=== PATIENT | male | born 1965 | race Caucasian/White ===

== ENCOUNTER 2020-05-14 19:55 | Emergency (ER) | payer BC ==
[2020-05-14] MEDS ORDERED: Bacitracin Oint 1 GM U/D Packet TOP ONE (20:20)
--- NOTE | 2020-05-14 20:55 | EDM.PDOC ---
ED HPI GENERAL MEDICAL PROBLEM - General Chief Complaint: Laceration Stated Complaint: CUT RIGHT HAND Time Seen by Provider: 05/14/20 20:25 Source of Information: Reports: Patient, Family History Limitations: Reports: Intoxication - History of Present Illness INITIAL COMMENTS - FREE TEXT/NARRATIVE: 55-year-old very intoxicated gentleman fell and cut his right hand on the ground . No other injury. It is a very dirty wound with particles of dirt embedded into the wound. Onset: Sudden Duration: Hour(s): (Within the last hour) Location: Reports: Upper Extremity, Right Associated Symptoms: Reports: No Other Symptoms - Related Data Allergies Allergy/AdvReac Type Severity Reaction Status Date / Time Penicillins Allergy Seizure Verified 05/14/20 20:19 Home Meds: Home Meds . [Unable to Verify Home Med List] 05/14/20 [History] Past Medical History - Past Surgical History HEENT Surgical History: Reports: Tonsillectomy Musculoskeletal Surgical History: Reports: Knee Replacement, Shoulder Replacement Social & Family History - Family History Family Medical History: Noncontributory - Tobacco Use Smoking Status *Q: Light Tobacco Smoker Years of Tobacco use: 10 Packs/Tins Daily: 0.1 - Caffeine Use Caffeine Use: Reports: None - Recreational Drug Use Recreational Drug Use: No ED ROS GENERAL - Review of Systems Review Of Systems: See Below Constitutional: Denies: Fever, Chills HEENT: Denies: Vision Change Respiratory: Denies: Shortness of Breath GI/Abdominal: Denies: Hematochezia, Nausea, Vomiting Musculoskeletal: Reports: Other (Chronic knee pain) Neurological: Reports: Other (Very intoxicated) ED EXAM, SKIN/RASH Exam: See Below Exam Limited By: No Limitations General Appearance: Alert, No Apparent Distress Head: Atraumatic Respiratory/Chest: No Respiratory Distress Extremities: Other (Exam limited to the right hand, he has a 4 cm transverse laceration on the palm at the base of the fourth and fifth fingers. Laceration is in the subcutaneous tissue but does not involve deep structures, he has full range of motion of the fingers.) Neurological: Alert Course - Vital Signs Last Recorded V/S: Last Vital Signs Temp 97.8 F 05/14/20 20:17 Pulse 79 05/14/20 20:17 Resp 16 05/14/20 20:17 BP 117/75 05/14/20 20:17 Pulse Ox 94 L 05/14/20 20:17 - Orders/Labs/Meds Meds: Medications Discontinued Medications Generic Name Dose Route Start Last Admin Trade Name Abisai JOSUE Reason Stop Dose Admin Bacitracin 1 dose 05/14/20 20:20 05/14/20 20:35 Bacitracin Oint 1 Gm TOP 05/14/20 20:21 1 dose ONETIME ONE Administration Lidocaine HCl 5 ml 05/14/20 20:20 05/14/20 20:35 Xylocaine-Mpf 1% INJECT 05/14/20 20:21 5 ml ONETIME ONE Administration - Re-Assessments/Exams Free Text/Narrative Re-Assessment/Exam: 05/14/20 20:53 Laceration was infiltrated with lidocaine, cleansed thoroughly with saline and all foreign particles were removed and cleaned out. Seven 4-0 Ethilon sutures were used to close the wound. Topical bacitracin and a wraparound pressure dressing was applied to the hand which should be kept on until tomorrow. He should keep the wound clean and covered while healing, and sutures can be removed in 9 days. Recheck sooner if concerns of infection or not healing satisfactorily. Departure - Departure Time of Disposition: 21:01 Disposition: Home, Self-Care 01 Clinical Impression: Laceration of right hand Qualifiers: Encounter type: initial encounter Foreign body presence: with foreign body Qualified Code(s): S61.421A - Laceration with foreign body of right hand, initial encounter - Discharge Information Instructions: Laceration Care, Adult, [id number] Referrals: PCP,None [Primary Care Provider] - Forms: ED Department Discharge Care Plan Goals: Keep your wound covered and clean while healing and sutures can be removed in 9 or 10 days. Recheck sooner if concerns of infection or not healing satisfactorily. Increase activity as tolerated. Sepsis Event Note (ED) - Evaluation Sepsis Screening Result: No Definite Risk - Focused Exam Vital Signs: Vital Signs Temp Pulse Resp BP Pulse Ox 05/14/20 20:17 97.8 F 79 16 117/75 94 L
== END 2020-05-14 21:02 | disposition home or self-care (01) ==
LOC: JP.ED 19:55
DX: S61.421A Laceration with foreign body of right hand, initial encounter (principal); Z88.0 Allergy status to penicillin; F17.290 Nicotine dependence, other tobacco product, uncomplicated; W45.8XXA Other foreign body or object entering through skin, initial encounter
CPT/HCPCS: 12042; 99283; J2001; 99282